=== PATIENT | male | born 1995 | race Caucasian/White ===

== ENCOUNTER 2016-10-23 11:08 | Emergency (ER) | payer SELFPAY ==
[2016-10-23 11:15] VITALS: RESP 18
[2016-10-23] MEDS ORDERED: SULFAMETHOX-TMP 800-160MG 1 EACH TAB PO STA (11:34)
--- NOTE | 2016-10-23 11:34 | ED ---
General Adult HPI - General Chief complaint: Skin/Abscess/Foreign Body Stated complaint: Cyst on Right Leg Time Seen by Provider: 10/23/16 11:21 Source: patient, RN notes reviewed Mode of arrival: ambulatory Limitations: no limitations - History of Present Illness Initial comments: Patient is a pleasant 21-year-old male presenting to the emergency Department with complaints of a sore on his right leg. Sore has been present for the past approximately 3 days and does seem to be getting worse. Patient has no some redness. Patient has discomfort only with touch. No history of similar symptoms previously. No fevers. No other areas of concern. - Related Data Previous Rx's Medication Instructions Recorded Sulfamethox-Tmp 800-160Mg [Bactrim 2 each PO Q12HR #40 tab 10/23/16 DS 800-160 mg] Allergies Allergy/AdvReac Type Severity Reaction Status Date / Time No Known Allergies Allergy Verified 10/23/16 11:30 Review of Systems ROS Statement: Those systems with pertinent positive or pertinent negative responses have been documented in the HPI. ROS Other: All systems not noted in ROS Statement are negative. Constitutional: Denies: fever, chills Eyes: Denies: eye pain ENT: Denies: ear pain Respiratory: Denies: cough Cardiovascular: Denies: chest pain Endocrine: Denies: fatigue Gastrointestinal: Denies: abdominal pain Genitourinary: Denies: dysuria Musculoskeletal: Denies: back pain Skin: Reports: rash, lesions Neurological: Denies: weakness Past Medical History Past Medical History: No Reported History History of Any Multi-Drug Resistant Organisms: None Reported Past Surgical History: No Surgical Hx Reported Past Psychological History: No Psychological Hx Reported Smoking Status: Never smoker Past Alcohol Use History: None Reported Past Drug Use History: None Reported General Exam Limitations: no limitations General appearance: alert, in no apparent distress Head exam: Present: atraumatic Eye exam: Present: normal appearance Neck exam: Present: normal inspection Respiratory exam: Present: normal lung sounds bilaterally Cardiovascular Exam: Present: regular rate, normal rhythm GI/Abdominal exam: Present: soft. Absent: tenderness Extremities exam: Present: other (Right upper inner thigh with area of cellulitis. There is a central lesion that is small and without much fluctuance.) Neurological exam: Present: alert Psychiatric exam: Present: normal affect, normal mood Skin exam: Present: rash, erythema (Right upper inner thigh) Course Vital Signs 10/23/16 11:13 Temperature 99.2 F Pulse Rate 90 Respiratory 18 Rate Blood Pressure 137/85 O2 Sat by Pulse 96 Oximetry Procedures - Procedures Initial comment: Needle aspiration attempted right upper inner thigh with trace amount of pus and blood. Area of cellulitis was outlined. Approximately 10 x 20 cm. Disposition Clinical Impression: Cellulitis of right thigh Disposition: HOME SELF-CARE Condition: Stable Instructions: Cellulitis (ED) Additional Instructions: Please follow-up with primary care physician in the next 2 days for recheck. Return for increased redness, increased swelling, fevers or worsening symptoms or other concerns. If symptoms worsen you may need more aggressive incision and drainage or admission for IV antibiotics. Prescriptions: Sulfamethox-Tmp 800-160Mg [Bactrim DS 800-160 mg] 2 each PO Q12HR #40 tab Referrals: None,Stated [Primary Care Provider] - 1-2 days Ellis Myers MD [STAFF PHYSICIAN] - 1-2 days
[2016-10-23 12:03] VITALS: BP 132/86; PULSE 87; TEMP 99.1
== END 2016-10-23 12:00 | disposition home or self-care (01) ==
LOC: EC 11:08
DX: L03.115 Cellulitis of right lower limb (principal); L98.9 Disorder of the skin and subcutaneous tissue, unspecified
CPT/HCPCS: 10160; 99282; 99283

== ENCOUNTER 2016-11-01 14:41 | Emergency (ER) | payer SELFPAY ==
[2016-11-01] MEDS ORDERED: ACETAMINOPHEN TAB 500 MG TAB PO STA (15:12)
[2016-11-01] MEDS ORDERED: KETOROLAC 30 MG/ML 1 ML VIAL IVP STA (15:12)
[2016-11-01] MEDS ORDERED: SODIUM CHLORIDE 0.9% 1,000 ML IV STA (15:12)
--- NOTE | 2016-11-01 15:18 | ED ---
Fever HPI - General Chief Complaint: Fever Stated Complaint: poss med reaction Time Seen by Provider: 11/01/16 14:48 Source: patient Mode of arrival: wheelchair Limitations: no limitations - History of Present Illness Initial Comments: Patient is a healthy 21-year-old male immunizations up-to-date presenting with fever, rash, myalgias, nausea and vomiting. Patient states symptoms started 2 days ago. Patient's T-max 102.6F for which he took Motrin yesterday. Patient states he vomited 4-5 times last 24 hours. Denies sick contacts or recent travel. Patient recently started on Bactrim for right leg cellulitis/ infection. Patient was seen 10/23/2016 for an abscess with surrounding sialitis. He was started on Bactrim DS 2 tabs twice a day for 10 days. Patient has a day and a half left. Patient denies flu vaccine. Patient admits to rash for which he says started on his face and now spreading to his arms and legs. Denies headache, dizziness, cough, shortness breath, chest pain, abdominal pain, dysuria. - Related Data Home Medications Medication Instructions Recorded Confirmed Sulfamethox-Tmp 800-160Mg [Bactrim 2 tab PO Q12HR 11/01/16 11/01/16 DS 800-160 mg] Previous Rx's Medication Instructions Recorded predniSONE 20 mg PO BID #10 tab 11/01/16 Allergies Allergy/AdvReac Type Severity Reaction Status Date / Time No Known Allergies Allergy Verified 11/01/16 17:03 Review of Systems ROS Statement: Those systems with pertinent positive or pertinent negative responses have been documented in the HPI. Constitutional: +fever and +chills. HENT: No congestion, no rhinorrhea and no sore throat. Eyes: No discharge and no redness. Respiratory: No cough and no shortness of breath. Cardiovascular: No chest pain and no palpitations. Gastrointestinal: +nausea, +vomiting, no abdominal pain and no diarrhea. Genitourinary: No dysuria and no hematuria. Musculoskeletal: No back pain and +arthralgias/myalgias. Skin: No pallor and +rash. Neurological: No dizziness and No headaches. ROS Other: All systems not noted in ROS Statement are negative. Past Medical History Past Medical History: No Reported History History of Any Multi-Drug Resistant Organisms: None Reported Past Surgical History: No Surgical Hx Reported Past Psychological History: No Psychological Hx Reported Smoking Status: Never smoker Past Alcohol Use History: None Reported Past Drug Use History: None Reported General Exam - General Exam Comments Initial Comments: Constitutional: Patient appears well-developed and well-nourished. No distress. Head: Normocephalic and atraumatic. Eyes: Conjunctivae and EOM are normal. Right eye exhibits no discharge. Left eye exhibits no discharge. No scleral icterus. Ears: Bilateral TMs with normal landmarks. Neck: Normal range of motion. Neck supple. Throat: Nonerythematous, geographic tongue, no mucous membrane of the lips or mucosal membrane involvement. Cardiovascular: Normal rate and regular rhythm. No murmur heard. Pulmonary/Chest: Effort normal and breath sounds normal. No respiratory distress. No wheezes. Abdominal: Soft. No distension. There is no tenderness. There is no rebound and no guarding. Musculoskeletal: Normal range of motion. No edema or tenderness. Neurological: Patient alert and oriented to person, place, and time. Skin: Patient has a 1 cm healing skin abscess to his right inguinal region. Patient has a macular rash to his face, chest, back extending to bilateral upper and lower extremities. Sparing flexor creases. Sparing hands and feet. Nursing notes and vitals reviewed. Limitations: no limitations Course Vital Signs 11/01/16 11/01/16 11/01/16 14:42 15:07 17:47 Temperature 101.6 F H 99.9 F H Pulse Rate 91 67 Respiratory 16 18 16 Rate Blood Pressure 125/59 119/56 O2 Sat by Pulse 99 98 Oximetry - Reevaluation(s) Reevaluation #1: 11/01/16 18:13 Patient doing much better after Tylenol, Toradol and IV fluids. Rash is regressing. Medical Decision Making - Medical Decision Making Patient is an otherwise healthy 21-year-old male with immunizations up-to-date presenting with fever, rash, myalgias and vomiting. Symptoms started 2 days prior to arrival. Patient was treated 9 days ago for a right upper thigh abscess. He was put on Bactrim double strength 2 tabs twice a day. He completed 9 days of treatment. Patient was given Tylenol, Toradol and IV fluids with symptomatic improvement of aches and pains. Blood work showed a WBC of 3.0, platelets 122, CRP 49.5, negative mononucleosis, negative flu a and B, negative strep, UA showing protein and ketones. Symptoms possibly related to viral exanthem versus drug eruption. Patient will be started on prednisone 40 mg for 5 days. Patient understands the need close follow-up with medicine doctor after the weekend. Patient to return for any worsening of symptoms. Prior to discharge, patient was resting comfortably in bed. Course of stay improved. Denies pain. Discussed physical exam and diagnostic tests with patient. Questions answered and patient is agreeable to discharge with close follow up with Primary Care Physician. Instructed to return to Emergency Department if symptoms worsen. - Lab Data Result diagrams: 11/01/16 15:27 11/01/16 15:27 Lab Results 11/01/16 11/01/16 11/01/16 Range/Units 15:27 15: 15:27 WBC 3.0 L (3.8-10.6) k/uL RBC 4.84 (4.30-5.90) m/uL Hgb 14.7 (13.0-17.5) gm/dL Hct 42.6 (39.0-53.0) % MCV 88.0 (80.0-100.0) fL MCH 30.4 (25.0-35.0) pg MCHC 34.6 (31.0-37.0) g/dL RDW 11.9 (11.5-15.5) % Plt Count 122 L (150-450) k/uL Neutrophils % 77 % Lymphocytes % 10 % Monocytes % 8 % Eosinophils % 1 % Basophils % 1 % Neutrophils # 2.3 (1.3-7.7) k/uL Lymphocytes # 0.3 L (1.0-4.8) k/uL Monocytes # 0.2 (0-1.0) k/uL Eosinophils # 0.0 (0-0.7) k/uL Basophils # 0.0 (0-0.2) k/uL ESR 3 (0-15) mm/hr Sodium 135 L (137-145) mmol/L Potassium 4.4 (3.5-5.1) mmol/L Chloride 101 (98-107) mmol/L Carbon Dioxide 19 L (22-30) mmol/L Anion Gap 15 mmol/L BUN 13 (9-20) mg/dL Creatinine 1.20 (0.66-1.25) mg/dL Est GFR (MDRD) Af Amer >60 (>60 ml/min/1.73 sqM) Est GFR (MDRD) Non-Af >60 (>60 ml/min/1.73 sqM) Glucose 91 (74-99) mg/dL Plasma Lactic Acid Miguel (0.7-2.0) mmol/L Calcium 9.4 (8.4-10.2) mg/dL Magnesium 1.6 (1.6-2.3) mg/dL C-Reactive Protein 49.5 H (<10.0) mg/L Urine Color Urine Appearance (Clear) Urine pH (5.0-8.0) Ur Specific [place] (1.001-1.035) Urine Protein (Negative) Urine Glucose (UA) (Negative) Urine Ketones (Negative) Urine Blood (Negative) Urine Nitrate (Negative) Urine Bilirubin (Negative) Urine Urobilinogen (<2.0) mg/dL Ur Leukocyte Esterase (Negative) Urine RBC (0-5) /hpf Urine WBC (0-5) /hpf Uric Acid Crystals (None) /hpf Urine Mucus (None) /hpf Heterophile Antibody Negative (Negative) Influenza Type A RNA (Not Detectd) Influenza Type B (PCR) (Not Detectd) Group A Strep Rapid (Negative) 11/01/16 11/01/16 11/01/16 Range/Units 15:27 15:27 15:27 WBC (3.8-10.6) k/uL RBC (4.30-5.90) m/uL Hgb (13.0-17.5) gm/dL Hct (39.0-53.0) % MCV (80.0-100.0) fL MCH (25.0-35.0) pg MCHC (31.0-37.0) g/dL RDW (11.5-15.5) % Plt Count (150-450) k/uL Neutrophils % % Lymphocytes % % Monocytes % % Eosinophils % % Basophils % % Neutrophils # (1.3-7.7) k/uL Lymphocytes # (1.0-4.8) k/uL Monocytes # (0-1.0) k/uL Eosinophils # (0-0.7) k/uL Basophils # (0-0.2) k/uL ESR (0-15) mm/hr Sodium (137-145) mmol/L Potassium (3.5-5.1) mmol/L Chloride (98-107) mmol/L Carbon Dioxide (22-30) mmol/L Anion Gap mmol/L BUN (9-20) mg/dL Creatinine (0.66-1.25) mg/dL Est GFR (MDRD) Af Amer (>60 ml/min/1.73 sqM) Est GFR (MDRD) Non-Af (>60 ml/min/1.73 sqM) Glucose (74-99) mg/dL Plasma Lactic Acid Miguel 0.7 (0.7-2.0) mmol/L Calcium (8.4-10.2) mg/dL Magnesium (1.6-2.3) mg/dL C-Reactive Protein (<10.0) mg/L Urine Color Urine Appearance (Clear) Urine pH (5.0-8.0) Ur Specific [place] (1.001-1.035) Urine Protein (Negative) Urine Glucose (UA) (Negative) Urine Ketones (Negative) Urine Blood (Negative) Urine Nitrate (Negative) Urine Bilirubin (Negative) Urine Urobilinogen (<2.0) mg/dL Ur Leukocyte Esterase (Negative) Urine RBC (0-5) /hpf Urine WBC (0-5) /hpf Uric Acid Crystals (None) /hpf Urine Mucus (None) /hpf Heterophile Antibody (Negative) Influenza Type A RNA Not Detected (Not Detectd) Influenza Type B (PCR) Not Detected (Not Detectd) Group A Strep Rapid Negative (Negative) 11/01/16 Range/Units 16:45 WBC (3.8-10.6) k/uL RBC (4.30-5.90) m/uL Hgb (13.0-17.5) gm/dL Hct (39.0-53.0) % MCV (80.0-100.0) fL MCH (25.0-35.0) pg MCHC (31.0-37.0) g/dL RDW (11.5-15.5) % Plt Count (150-450) k/uL Neutrophils % % Lymphocytes % % Monocytes % % Eosinophils % % Basophils % % Neutrophils # (1.3-7.7) k/uL Lymphocytes # (1.0-4.8) k/uL Monocytes # (0-1.0) k/uL Eosinophils # (0-0.7) k/uL Basophils # (0-0.2) k/uL ESR (0-15) mm/hr Sodium (137-145) mmol/L Potassium (3.5-5.1) mmol/L Chloride (98-107) mmol/L Carbon Dioxide (22-30) mmol/L Anion Gap mmol/L BUN (9-20) mg/dL Creatinine (0.66-1.25) mg/dL Est GFR (MDRD) Af Amer (>60 ml/min/1.73 sqM) Est GFR (MDRD) Non-Af (>60 ml/min/1.73 sqM) Glucose (74-99) mg/dL Plasma Lactic Acid Miguel (0.7-2.0) mmol/L Calcium (8.4-10.2) mg/dL Magnesium (1.6-2.3) mg/dL C-Reactive Protein (<10.0) mg/L Urine Color Yellow Urine Appearance Clear (Clear) Urine pH 6.0 (5.0-8.0) Ur Specific [place] 1.029 (1.001-1.035) Urine Protein 1+ H (Negative) Urine Glucose (UA) Negative (Negative) Urine Ketones 4+ H (Negative) Urine Blood Negative (Negative) Urine Nitrate Negative (Negative) Urine Bilirubin Negative (Negative) Urine Urobilinogen 3.0 (<2.0) mg/dL Ur Leukocyte Esterase Negative (Negative) Urine RBC 1 (0-5) /hpf Urine WBC 3 (0-5) /hpf Uric Acid Crystals Rare H (None) /hpf Urine Mucus Rare H (None) /hpf Heterophile Antibody (Negative) Influenza Type A RNA (Not Detectd) Influenza Type B (PCR) (Not Detectd) Group A Strep Rapid (Negative) Disposition Clinical Impression: Fever, Rash Disposition: HOME SELF-CARE Condition: Good Instructions: Fever in Adults (ED), Acute Rash (ED) Prescriptions: predniSONE 20 mg PO BID #10 tab Referrals: None,Stated [Primary Care Provider] - 1-2 days Arabella Barnes MD [REFERRING] - 1-2 days
[2016-11-01 15:51] LABS: Basophils % (A) 1 %; CH 31.3; CHCM 35.7; Eosinophils % (A) 1 %; HCT 42.6 % (39.0-53.0); HGB 14.7 gm/dL (13.0-17.5); Luc # (Auto) 0.12; Luc % (Auto) 4; Lymphocytes # (A) 0.3 k/uL (1.0-4.8); Lymphocytes % (A) 10 %; MCH 30.4 pg (25.0-35.0); MCHC 34.6 g/dL (31.0-37.0); Mean Platelet Volume 7.1; Monocytes # (A) 0.2 k/uL (0-1.0); Monocytes % (A) 8 %; Neutrophils # (A) 2.3 k/uL (1.3-7.7); Neutrophils % (A) 77 %; RBC 4.84 m/uL (4.30-5.90); RDW 11.9 % (11.5-15.5); WBC (Perox) 3.02
[2016-11-01 16:02] LABS: Anion Gap 15 mmol/L; Blood Urea Nitrogen 13 mg/dL (9-20); C Reactive Protein 49.5 mg/L (<10.0); Calcium 9.4 mg/dL (8.4-10.2); Carbon Dioxide 19 mmol/L (22-30); Chloride 101 mmol/L (98-107); Glucose 91 mg/dL (74-99); Magnesium 1.6 mg/dL (1.6-2.3); Non-African American GFR(MDRD) >60 (>60 ml/min/1.73 sqM); Potassium 4.4 mmol/L (3.5-5.1); Sodium 135 mmol/L (137-145)
[2016-11-01 16:43] LABS: Erythrocyte Sedimentation Rate 3 mm/hr (0-15)
[2016-11-01 17:02] LABS: Appearance,Urine Clear (Clear); Bilirubin,Urine Negative (Negative); Glucose,Urine (UA) Negative (Negative); Ketones,Urine 4+ (Negative); Leukocyte Esterase,Urine Negative (Negative); Mucus,Urine Rare /hpf; Nitrite,Urine Negative (Negative); Particle Count 4885; Protein,Urine 1+ (Negative); RBC,Urine 1 /hpf (0-5); Specific Gravity,Urine 1.029 (1.001-1.035); UA Billing (MACRO vs. MICRO) MICRO; Uric Acid Crystals,Urine Rare /hpf; WBC,Urine 3 /hpf (0-5)
[2016-11-01 17:49] VITALS: BP 119/56; PULSE 67; RESP 16; TEMP 99.9
== END 2016-11-01 18:14 | disposition home or self-care (01) ==
LOC: EC 14:41
DX: R50.9 Fever, unspecified (principal); R21 Rash and other nonspecific skin eruption; M79.1 Myalgia; R11.2 Nausea with vomiting, unspecified
CPT/HCPCS: 36415; 80048; 85652; 83605; 83735; 85025; 86140; 86308; 81001; 87040; 87081; 87430; 87502; 99283; 96374; 96361; J1885